=== PATIENT | female | born 1950 | race Two or more races ===

== ENCOUNTER 2016-10-12 10:28 | Emergency (ER) | payer MEDICARE | END 2016-10-12 12:47 | disposition left against medical advice (07) | LOC: UCEAST 10:28 | DX: Z53.21 Procedure and treatment not carried out due to patient leaving prior to being seen by health care provider (principal) ==

== ENCOUNTER 2016-11-08 19:45 | Emergency (ER) | payer MEDICARE, OTHER ==
--- NOTE | 2016-11-08 21:52 | RAD ---
INDICATION: Left-sided facial droop x2 days COMPARISON: CT of the brain dated September 01, 2013. The image quality of this CT is poor and of limited value in comparison. TECHNIQUE: Contiguous axial sections of the brain were obtained from the skull base to the vertex without contrast. FINDINGS: The ventricles, cisterns and sulci are within normal limits. There is diffuse and patchy periventricular and subcortical white matter hypoattenuation most consistent with chronic microvascular disease. The still-white matter differentiation is adequately maintained and there is no sulcal effacement. No significant focal abnormality or mass effect is present. There is no evidence for intracranial hemorrhage. No significant focal osseous abnormality is present. There is near complete opacification of the bilateral maxillary sinuses. There is complete opacification of the right anterior ethmoid air cells with mild mucosal thickening of the left anterior and posterior ethmoid air cells. There is near complete opacification of the right frontal sinus. The mastoid air cells are adequately aerated. IMPRESSION: 1. CT appearance of the brain is most consistent with chronic microvascular disease. If the patient is exhibiting focal neurologic deficits then MRI of the brain is advised. 2. Advanced paranasal sinus mucosal disease, more severe than the September 01, 2013 CT of the brain.
--- NOTE | 2016-11-08 22:01 | ED ---
Estela Devries Alok, scribed for Makeda Calero MD on 11/08/16 at 2036 . Neurological HPI - HPI Summary HPI Summary: 66F presents to the ED with left sided facial numbness since 2 days ago. Pt states she was applying cream to her face 2 days ago when she noticed numbness on the left side of her tongue, lips and cheek. Pt denies hearing loss. Pt notes a tick bite weeks ago but denies rash. PMHx includes h/o cold sore on lip. Pt denies h/o stroke or lyme disease. PMHx includes multiple myeloma. - History of Current Complaint Chief Complaint: EDGeneral Stated Complaint: LEFT SIDE FACIAL NUMBNESS Time Seen by Provider: 11/08/16 20:05 Hx Obtained From: Patient Onset/Duration: Started days ago, Still Present Timing: Constant Onset Severity: Moderate Current Severity: Moderate Neurological Deficit Location: Facial Pain Intensity: 3 Pain Scale Used: 0-10 Numeric Character: Numbness/Tingling Aggravating: Nothing Alleviating: Nothing Associated Signs and Symptoms: Positive: Numbness - Allergy/Home Medications Allergies/Adverse Reactions: Allergies Allergy/AdvReac Type Severity Reaction Status Date / Time No Known Allergies Allergy Verified 11/08/16 19:52 Home Medications: Home Medications Aspirin [Aspirin Low Strength] 81 mg PO DAILY 11/08/16 [History Confirmed ] Lenalidomide(NF) [Revlimid(NF)] 10 mg PO DAILY 11/08/16 [History Confirmed 11/08] PMH/Surg Hx/FS Hx/Imm Hx Endocrine/Hematology History: Denies: Hx Diabetes Cardiovascular History: Denies: Hx Hypertension - Cancer History Hx Chemotherapy: Yes - MYLOMA Hx Radiation Therapy: No Infectious Disease History: No Infectious Disease History: Denies: Traveled Outside the [place] in Last 30 Days - Family History Known Family History: Positive: Other - No - Stroke - Social History Occupation: Retired Lives: With Family Alcohol Use: None Substance Use Type: Reports: None Smoking Status (MU): Never Smoked Tobacco Review of Systems Negative: Fever Negative: Other - hearing loss Negative: Rash Positive: Numbness All Other Systems Reviewed And Are Negative: Yes Physical Exam Triage Information Reviewed: Yes Vital Signs On Initial Exam: Initial Vitals Temp Pulse Resp BP Pulse Ox 97.7 F 84 18 122/91 100 11/08/16 19:49 11/08/16 19:49 11/08/16 19:49 11/08/16 19:49 11/08/16 19:49 Vital Signs Reviewed: Yes Appearance: Positive: Well-Appearing, No Pain Distress Skin: Positive: Warm, Skin Color Reflects Adequate Perfusion, Dry Eyes: Positive: EOMI, REN ENT: Positive: Pharynx normal, TMs normal Neck: Positive: Supple, Nontender Respiratory/Lung Sounds: Positive: Clear to Auscultation, Breath Sounds Present. Negative: Rales, Rhonchi, Wheezes Cardiovascular: Positive: RRR, Other - no gallop. Negative: Murmur, Rub Abdomen Description: Positive: Nontender, Soft, Other: - no rebound. Negative: Distended, Guarding Bowel Sounds: Positive: Present Musculoskeletal: Positive: Strength/ROM Intact. Negative: Edema Left, Edema Right Neurological: Positive: Sensory/Motor Intact, Alert, Oriented to Person Place, Time, CN Intact II-III Psychiatric: Positive: Affect/Mood Appropriate - [place] Coma Scale Coma Scale Total: 15 Diagnostics - Vital Signs Vital Signs Temp Pulse Resp BP Pulse Ox 11/08/16 20:03 99.6 F 76 18 125/67 98 11/08/16 19:49 97.7 F 84 18 122/91 100 - Laboratory Lab Statement: Any lab studies that have been ordered have been reviewed, and results considered in the medical decision making process. 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: Both Correctly Best Gaze (Only Horizontal Eye Movement): Normal Visual Field Testing: No Visual Loss Facial Paresis-Pt to Smile & Close Eyes or Grimace Symmetry: Normal/Symmetrical Motor Function - Right Arm: No Drift-Holds 10 Seconds Motor Function - Left Arm: No Drift-Holds 10 Seconds Motor Function - Right Leg: No Drift-Holds 10 Seconds Motor Function - Left Leg: No Drift-Holds 10 Seconds Limb Ataxia-Must be out of Proportion to Weakness Present: Absent Sensory (Use Pinprick to Test Arms/Legs/Trunk/Face): Normal Best Language (Describe Picture, Name Items): No Aphasia Dysarthria (Read Several Words): Normal Extinction and Inattention: No Abnormality Total Score: 0 Re-Evaluation - Re-Evaluation First Eval Re-Evaluation Time: 21:20 Change: Unchanged Comment: Recommended pt admit to [facility]. Pt is declining and would rather go home instead. Course/Dx - Course Course Of Treatment: this is a 66 yo female with history of multiple myeloma who reports noting left facial numbness a couple of days ago with left sided tongue numbness today no hearing changes. Her exam shows sparing of her forehead and minimal softening of the lines between the cheek and mouth, otherwise normal exam and normal nih scale (besides the face) the case was discussed with Dr. Jimenez who said this didn't sound like a bells palsy given the numbness. Pt was to be admitted but she decided to leave [facility]a despite discussing the risks with her and her . Of note she does have b/l worsening sinusitis on her CT, I have urged her to see her doc Dr. Green tomorrow. - Diagnoses Provider Diagnoses: Lt facial numbness - Physician Notifications Discussed Care Of Patient With: Malena Jimenez - Recommends pt admit Time Discussed With Above Provider: 20:56 Discharge - Discharge Plan Condition: Stable Disposition: AGAINST MEDICAL ADVICE The documentation as recorded by the Estela nam Alok accurately reflects the service I personally performed and the decisions made by me, Makeda Calero MD.
[2016-11-08 22:10] VITALS: BP 113/49
--- NOTE | 2016-11-09 01:26 | ED ---
I, Mateus Palmer, scribed for Makeda Calero MD on 11/08/16 at 2202 . Progress - Results/Orders Results/Orders: Brain CT - IMPRESSION: 1. CT appearance of the brain is most consistent with chronic microvascular disease. If the patient is exhibiting focal neurologic deficits then MRI of the brain is advised. 2. Advanced paranasal sinus mucosal disease, more severe than the September 01, 2013 CT of the brain. - EKG/XRAY/CT CT: Brain CT - See Note Re-Evaluation - Re-Evaluation First Eval Re-Evaluation Time: 21:20 Change: Unchanged Comment: Recommended [place] admit [place] [facility] Pt is declining and would rather go home instead. Course/Dx - Course Course Of Treatment: this is a 66 yo female with history of multiple myeloma who reports noting left facial numbness a couple of days ago with left sided tongue numbness today no hearing changes. Her exam shows sparing of her forehead and minimal softening of the lines between the cheek and mouth, otherwise normal exam and normal nih scale (besides the face) the case was discussed with Dr. Jimenez who said this didn't sound like a bells palsy given the numbness. Pt was to be admitted but she decided to leave ama despite discussing the risks with her and her . Of note she does have b/l worsening sinusitis on her CT, I have urged her to see her doc Dr. Green tomorrow. - Diagnoses Provider Diagnoses: Lt facial numbness - Provider Notifications Time Discussed With Above Provider: 20:56 The documentation as recorded by the everibEstela garza Alok accurately reflects the service I personally performed and the decisions made by me, Makeda Calero MD.
== END 2016-11-08 22:23 | disposition left against medical advice (07) ==
LOC: ED 19:45
DX: R20.0 Anesthesia of skin (principal)
CPT/HCPCS: 70450; 99283

== ENCOUNTER 2016-11-12 14:44 | Emergency (ER) | payer MEDICARE, OTHER ==
--- NOTE | 2016-11-12 20:10 | ED ---
rozina Devries Timothy, scribed for Nehemias Regan MD on 11/12/16 at 1951 . Neurological HPI - HPI Summary HPI Summary: Kasia Nolasco is a 66 yo female presenting to [facility] with dizziness and being "off-balance" since yesterday, and left sided facial numbness since 11/07/16. She states she was worked up 11/07/16 for possible stroke with the conclusion she was not experiencing CVA. She presents today per recommendation of her PCP, consulted at 1500 today. She is not in any current pain. Her MHx includes myeloma, stem cell transpalant 11/2014, chemotherapy, PNA, appendectomy. pt scheduled for mri later today - History of Current Complaint Chief Complaint: EDDizziness Stated Complaint: NUMBNESS LT SIDE OF FACE Time Seen by Provider: 11/12/16 19:46 Hx Obtained From: Patient Onset/Duration: Sudden Onset, Started days ago Timing: Constant Onset Severity: Moderate Current Severity: Moderate Neurological Deficit Location: Generalized - dizziness, Facial - numbness left side Pain Intensity: 0 Pain Scale Used: 0-10 Numeric Character: Dizzy, Other: - left side facial numbness Associated Signs and Symptoms: Positive: Dizziness - Allergy/Home Medications Allergies/Adverse Reactions: Allergies Allergy/AdvReac Type Severity Reaction Status Date / Time No Known Allergies Allergy Verified 11/08/16 19:52 PMH/Surg Hx/FS Hx/Imm Hx Endocrine/Hematology History: Denies: Hx Diabetes Cardiovascular History: Denies: Hx Hypertension, Hx Pacemaker/ICD History: Denies: Hx Renal Disease Sensory History: Denies: Hx Hearing Aid Psychiatric History: Denies: Hx Panic Disorder - Cancer History Hx Chemotherapy: Yes - MYLOMA Hx Radiation Therapy: No - Surgical History Surgery Procedure, Year, and Place: APPENDIX. LEFT LEG FRACTURE HARDWARE REMOVED Infectious Disease History: Denies: Traveled Outside the [place] in Last 30 Days - Family History Known Family History: Positive: Hypertension, Other - No - Stroke Negative: Cardiac Disease, Diabetes - Social History Alcohol Use: None Substance Use Type: Reports: None Smoking Status (MU): Never Smoked Tobacco Review of Systems Constitutional: Negative Eyes: Negative ENT: Negative Cardiovascular: Negative Respiratory: Negative Gastrointestinal: Negative Genitourinary: Negative Musculoskeletal: Negative Skin: Negative Neurological: Other - dizziness Positive: Numbness - left side of face Psychological: Normal All Other Systems Reviewed And Are Negative: Yes Physical Exam Triage Information Reviewed: Yes Vital Signs On Initial Exam: Initial Vitals Temp Pulse Resp BP Pulse Ox 97.7 F 74 20 136/71 100 11/12/16 14:52 11/12/16 14:52 11/12/16 14:52 11/12/16 14:52 11/12/16 14:52 Vital Signs Reviewed: Yes Appearance: Positive: Well-Appearing, No Pain Distress Skin: Positive: Warm Head/Face: Positive: Normal Head/Face Inspection Eyes: Positive: EOMI, REN ENT: Positive: Hearing grossly normal Neck: Positive: Supple Respiratory/Lung Sounds: Positive: Clear to Auscultation, Breath Sounds Present Cardiovascular: Positive: RRR Abdomen Description: Positive: Nontender, Soft Bowel Sounds: Positive: Present Musculoskeletal: Positive: Strength/ROM Intact Neurological: Positive: Sensory/Motor Intact, Alert, Oriented to Person Place, Time, Normal Gait Psychiatric: Positive: Affect/Mood Appropriate Diagnostics - Vital Signs Vital Signs Temp Pulse Resp BP Pulse Ox 11/12/16 19:19 98.4 F 79 16 133/85 98 11/12/16 16:51 97.6 F 72 20 132/70 99 11/12/16 14:52 97.7 F 74 20 136/71 100 - Laboratory Result Diagrams: 11/12/16 20:57 11/12/16 20:57 Lab Statement: Any lab studies that have been ordered have been reviewed, and results considered in the medical decision making process. - EKG 2044 Cardiac Rate: NL - 76 BPM EKG Interpretation: NSR @ 76 BPM, normal EKG NIH Scale - NIH Scale Level of Consciousness: Alert/Keenly Responsive Ask Patient the Month and His/Her Age: Both Correct Ask Pt to Open/Close Eyes and Morale Officer/Release Non-Paretic Hand: Both Correctly Best Gaze (Only Horizontal Eye Movement): Normal Visual Field Testing: No Visual Loss Facial Paresis-Pt to Smile & Close Eyes or Grimace Symmetry: Normal/Symmetrical Motor Function - Right Arm: No Drift-Holds 10 Seconds Motor Function - Left Arm: No Drift-Holds 10 Seconds Motor Function - Right Leg: No Drift-Holds 10 Seconds Motor Function - Left Leg: No Drift-Holds 10 Seconds Limb Ataxia-Must be out of Proportion to Weakness Present: Absent Sensory (Use Pinprick to Test Arms/Legs/Trunk/Face): Normal Best Language (Describe Picture, Name Items): No Aphasia Dysarthria (Read Several Words): Normal Extinction and Inattention: No Abnormality Total Score: 0 Re-Evaluation - Re-Evaluation First Eval Change: Improved - results d/w pt Course/Dx - Course Assessment/Plan: Kasia Nolasco is a 66 yo female presenting to [facility] with left sided facial numbness since 11/07/16 with dizziness and off balance since yesterday, worked up for possible CVA 11/07/16 with conclusion that she was not experiencing CVA. Pt medication list reviewed this visit. In the ED course she received Klor-Con and Potassium Chloride. Her EKG suggests NSR. After clinical examination and review of her lab and imaging studies, she will be discharged home with hypokalemia, facial numbness, and dizziness with appropriate instructions. - Differential Dx Differential Diagnoses Neuro: Positive: Other - facial numbness, dizziness, hypokalemia - Diagnoses Provider Diagnoses: Hypokalemia, Facial numbness, Dizziness Discharge - Discharge Plan Condition: Stable Disposition: HOME Patient Education Materials: Hypokalemia (ED), Paresthesia (ED), Dizziness (ED) Referrals: Stefanie Green MD [Primary Care Provider] - 2 Days Additional Instructions: Please follow up with your primary care physician as scheduled regarding your visit to the emergency department today. Return to the emergency department with any new or recurring symptoms. The documentation as recorded by the rozina nam Timothy accurately reflects the service I personally performed and the decisions made by me, Nehemias Regan MD.
[2016-11-12 21:05] LABS: Hematocrit 37 % (35-47); Hemoglobin 12.4 g/dl (12.0-16.0); Mean Corpuscular HGB Conc 33 g/dl (31-36); Mean Corpuscular Hemoglobin 32 pg (27-31); Mean Corpuscular Volume 95 fL (80-97); Mean Platelet Volume 10 um3 (7.4-10.4); Red Blood Count 3.92 10^6/ul (4.0-5.4); Red Cell Distribution Width 15 % (10.5-15); White Blood Count 5.4 10^3/ul (3.5-10.8)
[2016-11-12 21:22] LABS: BUN/Creatinine Ratio 13.8 (8-20); C Reactive Protein 35.72 mg/L (< 5.00); Calcium 8.4 mg/dL (8.6-10.3); EGFR African American 92.6 (>60); Globulin 2.8 g/dL (2-4); Potassium 2.9 mmol/L (3.5-5.0); Total Bilirubin 0.7 mg/dL (0.2-1.0); Total Protein 6.8 g/dL (6.4-8.9)
[2016-11-12] MEDS: Potassium Chloride LIQUID* 20 MEQ PACKET PO ONE ×2 (22:26→23:31)
[2016-11-12] MEDS: KCL 10 MEQ/50 ML IVPREMIX* 10 MEQ/50 ML BAG IV SCH (22:26)
[2016-11-12] MEDS ORDERED: Potassium Chlor TAB* 20 MEQ TAB.ER PO ONE (23:18)
[2016-11-13] MEDS: KCL 10 MEQ/50 ML IVPREMIX* 10 MEQ/50 ML BAG IV SCH (00:09)
[2016-11-13 01:31] VITALS: BP 145/80
== END 2016-11-13 01:31 | disposition home or self-care (01) ==
LOC: ED 14:44
DX: E87.6 Hypokalemia (principal); R42 Dizziness and giddiness; R20.0 Anesthesia of skin
CPT/HCPCS: 36415; 80053; 83735; 85025; 86140; 93005; 99283; A9270-GY; J3480

== ENCOUNTER 2016-11-13 13:35 | Inpatient (IN) | payer MEDICARE, OTHER ==
[2016-11-13] MEDS ORDERED: Temazepam CAP* 15 MG PO PRN (13:45)
[2016-11-13] MEDS ORDERED: Acetaminophen TAB* 325 MG PO PRN (13:45)
[2016-11-13] MEDS ORDERED: Ondansetron ODT TAB* 4 MG SL PRN (13:45)
[2016-11-13] MEDS ORDERED: Loperamide CAP* 2 MG PO PRN (13:45)
[2016-11-13] MEDS ORDERED: traMADol TAB* 50 MG PO PRN (13:45)
[2016-11-13] MEDS ORDERED: Diphenoxylat/Atrop 2.5-0.025M* 1 TAB PO PRN (13:47)
[2016-11-13] MEDS: NS 0.9% 1000 ML* 1,000 ML IV SCH (15:28)
--- NOTE | 2016-11-13 17:32 | RAD ---
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 73 mL Omnipaque 300 was utilized. Coronal and sagittal reconstructed images were acquired. CHEST FINDINGS: Neck/thyroid: The visualized neck to include the thyroid appear normal. Chest wall: See description of osseous structures below. There is no supraclavicular, infraclavicular, or axillary lymphadenopathy. Lungs : There are no definitive pulmonary parenchymal masses or infiltrates. There is mild parenchymal nodularity in the lung bases but this is contiguous with the pleura and could be related to minimal scarring and/or atelectasis. The pulmonary interstitium appears normal. There are no endobronchial lesions. Cardiomediastinal structures: The heart is normal in size. There is no pericardial effusion. There is no evidence of aortic aneurysm or dissection. The pulmonary vessels appear normal. There is no mediastinal or hilar adenopathy. The esophagus appears normal. Pleura : There are no pleural-based masses or effusions. ABDOMINAL/PELVIC FINDINGS: Liver: The liver is normal in size. There are no masses. There is presumed focal fatty infiltration near the falciform ligament There is no ductal dilatation. Gallbladder: There are no calcified gallstones. There is no evidence of wall thickening or pericholecystic fluid. Spleen: The spleen is normal in size. There are no masses. Pancreas: There is no evidence of pancreatic mass or ductal dilatation. Adrenal glands: There is no evidence of adrenal mass. Kidneys: The kidneys are normal in size and position. There are prompt nephrograms and there is prompt excretion bilaterally. There are no renal parenchymal masses. There is no evidence of nephrolithiasis. Adenopathy: There is no evidence of adenopathy by size criteria. Fluid collections: There are no free or localized fluid collections. Vessels:The aorta and IVC appear normal GI tract: There are no definitive colonic abnormalities. The disc. Mild diffuse mucosal thickening. In part this could be related to inadequate distention at the level of the sigmoid colon. There is no obstruction. The upper GI tract appears normal. Pelvic organs: The uterus and adnexa appear normal Bladder: There are no bladder masses. Abdominal and pelvic soft tissues: The extraperitoneal abdominal and pelvic soft tissues appear normal.. Osseous structures: There are diffuse lytic metastasis involving the right scapula, the thoracic and lumbar vertebrae, and the bony pelvis. The ribs appear mottled. There are areas of sclerosis. A bone scan would best evaluate the full extent of these bony metastasis. Patient is also noted to be very osteopenic and there are multiple compression deformities IMPRESSION: NO EVIDENCE OF DISCRETE MASS OR ADENOPATHY IN THE CHEST, ABDOMEN, OR PELVIS. THERE ARE DIFFUSE BONY METASTASIS.
[2016-11-14] MEDS: NS 0.9% 1000 ML* 1,000 ML IV SCH (05:51)
[2016-11-14 08:00] LABS: Hematocrit 38 % (35-47); Hemoglobin 12.4 g/dl (12.0-16.0); Mean Corpuscular HGB Conc 33 g/dl (31-36); Mean Corpuscular Hemoglobin 32 pg (27-31); Mean Corpuscular Volume 96 fL (80-97); Mean Platelet Volume 10 um3 (7.4-10.4); Red Cell Distribution Width 16 % (10.5-15); White Blood Count 6.2 10^3/ul (3.5-10.8)
[2016-11-14 08:05] LABS: BUN/Creatinine Ratio 12.2 (8-20); Calcium 8.6 mg/dL (8.6-10.3); EGFR African American 101.3 (>60); EGFR Non-African American 78.8 (>60); Potassium 3.2 mmol/L (3.5-5.0)
[2016-11-14] MEDS ORDERED: Potassium Chlor TAB* 20 MEQ TAB.ER PO ONE (11:53)
[2016-11-14 16:28] VITALS: BP 154/83
--- NOTE | 2016-11-15 03:46 | DS ---
DISCHARGE SUMMARY: DATE OF ADMISSION: 11/13/16 DATE OF PLANNED DISCHARGE: To [facility], 11/14/16 HISTORY: Kasia Nolasco is a 66-year-old female with a history of multiple myeloma. [facility]. 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 This was done in [place]. She received Bactr im and acyclovir through day 100 and has not required prophylactic antibiotics since. In early 2014 , on reevaluation, she was found to have 5% involvement in the bone marrow along with residual scapu lar lesions and has been on Revlimid for the past 2 years. With this, she had a stable bone survey early this year along with stable serum protein electrophoresis and other labs. The patient developed left facial numbness and gait disturbance along with diplopia over the past we ek to 10 days. This was preceded by an episode of diarrhea about 3 weeks ago. Otherwise, she has f elt well until the past week. She was seen in the emergency room on 11/08/16 at [facility] er with a negative CT of the brain. Because of this, an MRI scan of the brain was ordered and was p erformed on 11/13/16. This revealed vasogenic edema involving both cerebral peduncles, more promine nt on the left than on the right. There are areas of restriction of diffusion and ring-enhancing ma ss is seen bilaterally in the cerebellum. This was felt by the radiologist to be most consistent wi th metastatic disease, but given the fact that she has not solid tumor, it is more likely related to infection than to mets. There were also chronic ischemic white matter changes noted along with muc osal thickening of the maxillary, right frontal and right ethmoid sinuses. The patient was brought back to our office after this MRI. Neurologic exam performed, situation discussed with Neurosurgery and then admitted to the hospital on 11/13/16. Since then, a CT scan of the chest, abdomen, and pe lvis was obtained looking for any sites of potential metastatic disease or any sites of potential pr imary malignancy. This CT scan of the chest, abdomen, and pelvis is unremarkable in terms of any ad enopathy or any organ abnormalities. Multiple lytic bone lesions are seen including in the scapula, pelvis, and spine consistent with the lytic bone lesions from her multiple myeloma; however, no sig ns of any primary or secondary malignancy otherwise were noted. Laboratory studies remains essential unremarkable other than a slightly low potassium level at 3.2 d uring this admission. Situation has been discussed with Neurosurgery 11/13/16, who said the patient would be better served by Interventional Radiology, biopsy of the cerebellum rather than a neurosur gical approach. As this service is not available at [facility], situation has been discu ssed with the transfer center of [place], [place]. The patient was initi ally referred to Neurosurgery, who said the patient would be better served on the neurology service. Situation was discussed with the attending neurologist covering for the weekend and the patient mejia s been accepted at [facility] in transfer pending bed availability. It was ex plained that the patient neurologically is not fully stable with progressive neurologic symptoms inc luding worsening gait and development of diplopia. MEDICATIONS AT THE TIME OF DISCHARGE: 1. P.r.n. Tylenol. 2. P.r.n. Imodium. 3. P.r.n. Restoril. 4. P.r.n. tramadol. The patient has also been on Revlimid and is currently on a dose of 10 mg per day. She is also typic ally on aspirin 81 mg a day, which is being held. DISCHARGE DIAGNOSES: 1. 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 Question inf ectious verus malignant. 2. Multiple myeloma status post tandem bone marrow transplant and currently with disease under cont rol, with active disease present on Revlimid. 3. Hypokalemia. 4. Recent diarrhea. [id number]/[facility] #: [id number]
== END 2016-11-14 19:00 | disposition short-term general hospital (02) | DRG 97 ==
LOC: SSU 13:39 → UNDOADMIN 14:18 → SSU 14:18
PROVIDERS: ADMIT Internal Medicine Hematology & Oncology; ATTEND Internal Medicine Hematology & Oncology
DX: G04.90 Encephalitis and encephalomyelitis, unspecified (principal); G93.6 Cerebral edema; Z94.81 Bone marrow transplant status; C90.01 Multiple myeloma in remission; C79.31 Secondary malignant neoplasm of brain; H53.2 Diplopia; R27.0 Ataxia, unspecified; R19.7 Diarrhea, unspecified; E87.6 Hypokalemia; Z87.891 Personal history of nicotine dependence; Z72.89 Other problems related to lifestyle
CPT/HCPCS: 36415; 70553; 71260; 74177; 80048; 80053; 83735; 85025; 85610; 85730; 86140; 93005; 99215; 99223; 99283; A9270-GY; A9579; G0463; J3480; Q9967